=== PATIENT | female | born 1960 | race Caucasian/White ===

== ENCOUNTER 2024-11-13 13:51 | Emergency (ER) | payer MEDICAID ==
[~2024-11-13] VITALS: Ht 157.5 cm; Wt 70.0 kg
[2024-11-13 14:05] VITALS: TEMP 98.4
[2024-11-13] MEDS: MECLIZINE HCL 25 MG TABLET PO ONE (15:25)
[2024-11-13] MEDS: ONDANSETRON 4 MG TABLET PO ONE (15:25)
[2024-11-13 18:39] VITALS: BP 150/82; PULSE 78; RESP 18; O2SAT 95
[2024-11-13] MEDS ORDERED: MECL-302 PO (18:44)
== END 2024-11-13 19:29 | disposition home or self-care (01) ==
LOC: EMS 14:16
DX: R42 Dizziness and giddiness (principal); R51.9 Headache, unspecified; I67.89 Other cerebrovascular disease; R50.9 Fever, unspecified; R11.2 Nausea with vomiting, unspecified
CPT/HCPCS: 99284; 70450; 93005; Q0162